=== PATIENT | female | born 1970 | race Caucasian/White ===

== ENCOUNTER 2017-07-15 11:32 | Emergency (ER) | payer BC ==
[2017-07-15] MEDS ORDERED: EPINEPHrine AMP 1 MG/ML SUBCUT ONE ×2 (11:36→11:51)
[2017-07-15] MEDS ORDERED: methylPREDNISolone 125 MG* 2 ML VIAL IM ONE (11:36)
[2017-07-15 11:59] VITALS: BP 118/78
[2017-07-16] MEDS ORDERED: EPINEPHRINE 1 MG/ML 1 ML VIAL ONE (14:49)
--- NOTE | 2017-08-04 18:06 | UC ---
Carlitos Stewart Nikita, scribed for Jessie Ibarra DO on 07/15/17 at 1141 . Allergic Reaction HPI - HPI Summary HPI Summary: This patient is a 47 year old F presenting to [facility] with a chief complaint of allergic reaction s/p being stung by 3 yellow jackets at 1030. pt has a h/o of anaphalaxis with bee stings. Pt reports pain are on both thighs and abdominal area where the bee stings are. Pt has not used her EpiPen, but has taken Benadryl [employer]STRUCTION [employer]ER. The patient rates the pain 6/10 in severity. Symptoms aggravated by nothing. Symptoms alleviated by nothing. Patient reports dizziness and throat swelling. Patient denies abdominal pain, N/V/D, and SOB. - History of Current Complaint Stated Complaint: BEE STING Hx Obtained From: Patient Hx Last Menstrual Period: on lupron for endometriosis Onset/Duration: Sudden Onset - 1030, Still Present Severity Initially: Moderate Severity Currently: Moderate Pain Intensity: 6 Pain Scale Used: 0-10 Numeric Location: Discrete @ - both thighs and abdominal area Character: Swelling, Pruritus, Pain Aggravating Factor(s): Nothing Alleviating Factor(s): Nothing Associated Signs And Symptoms: Positive: Throat Tightening, Other: - dizziness - Related Hx Possible Reaction To: Insect - Allergies/Home Medications Allergies/Adverse Reactions: Allergies Allergy/AdvReac Type Severity Reaction Status Date / Time Wheat Bran Allergy Intermediate See Comment Verified 07/15/17 11:34 Wheat Extract Allergy Intermediate See Comment Verified 07/15/17 11:34 Wheat Germ Oil Allergy Intermediate See Comment Verified 07/15/17 11:34 Avocado Allergy Anaphylatic Verified 07/15/17 11:34 Shock Barley Grass Allergy Anaphylatic Verified 07/15/17 11:34 Shock Canaan Oil [From [place]aan] Allergy Itching Verified 07/15/17 11:34 Erythromycin Allergy Nausea And Verified 07/15/17 11:34 Vomiting Honey Allergy Itching Verified 07/15/17 11:34 Iodinated Contrast Media Allergy Hives Verified 07/15/17 11:34 [CONTRAST DYE] Iodine Allergy Unknown Verified 07/15/17 11:34 Reaction Details Molds & Smuts Allergy Shortness Verified 07/15/17 11:34 of Breath Sulfa Antibiotics Allergy Anaphylatic Verified 07/15/17 11:34 Shock Sulfa Drugs Allergy Hives Verified 07/15/17 11:34 apricots Allergy Anaphylatic Uncoded 07/15/17 11:34 Shock blue cheese Allergy Itching Uncoded 07/15/17 11:34 cantaloupe Allergy Anaphylatic Uncoded 07/15/17 11:34 Shock carrots Allergy Anaphylatic Uncoded 07/15/17 11:34 Shock celery Allergy Anaphylatic Uncoded 07/15/17 11:34 Shock cherries Allergy Anaphylatic Uncoded 07/15/17 11:34 Shock coconut Allergy Anaphylatic Uncoded 07/15/17 11:34 Shock dates Allergy Anaphylatic Uncoded 07/15/17 11:34 Shock egg whites Allergy Anaphylatic Uncoded 07/15/17 11:34 Shock environmental Allergy Unknown Uncoded 07/15/17 11:34 Reaction Details kiwi Allergy Anaphylatic Uncoded 07/15/17 11:34 Shock legumes Allergy Anaphylatic Uncoded 07/15/17 11:34 Shock mold Allergy Shortness Uncoded 07/15/17 11:34 of Breath nectarines Allergy Anaphylatic Uncoded 07/15/17 11:34 Shock papaya Allergy Anaphylatic Uncoded 07/15/17 11:34 Shock peaches Allergy Anaphylatic Uncoded 07/15/17 11:34 Shock peanuts Allergy Anaphylatic Uncoded 07/15/17 11:34 Shock peppers Allergy Anaphylatic Uncoded 07/15/17 11:34 Shock pine nuts Allergy Anaphylatic Uncoded 07/15/17 11:34 Shock plums Allergy Itching Uncoded 07/15/17 11:34 pomegranates Allergy Anaphylatic Uncoded 07/15/17 11:34 Shock radishes Allergy Anaphylatic Uncoded 07/15/17 11:34 Shock rye Allergy Anaphylatic Uncoded 07/15/17 11:34 Shock sesame Allergy Anaphylatic Uncoded 07/15/17 11:34 Shock shell fish Allergy Anaphylatic Uncoded 07/15/17 11:34 Shock some seafood Allergy Anaphylatic Uncoded 07/15/17 11:34 Shock sunflower seeds Allergy Anaphylatic Uncoded 07/15/17 11:34 Shock tree nuts Allergy Anaphylatic Uncoded 07/15/17 11:34 Shock wheat germ Allergy Anaphylatic Uncoded 07/15/17 11:34 Shock Home Medications: Home Medications Budesonide/Formote 80/4.5(NF) [Symbicort 80/4.5 (NF)] 1 inhaler INHH DAILY 07/15 [History Confirmed 07/15/17] PMH/Surg Hx/FS Hx/Imm Hx Other Endocrine History: Immunodeficiency of immunoglobulin J Other Cardiovascular History: Heart murmur, vascular heart disease Respiratory History: Asthma, Bronchitis Other Respiratory History: BiPap dependent, sleep apnea Neurological History: Migraine - v Psychological History: Anxiety, Depression - Surgical History Surgical History: Yes Surgery Procedure, Year, and Place: 1986 R INGUINAL HERNIA REPAIR,. 1990 HIMENECTOMY,. 1993 ABDOMINAL LAPAROSCOPY FOR ENDOMETRIOSIS,X2. 1994 WISDOM TEETH,. 2006 BRONCHOSCOPY,. 2010 RIGHT BREAST BIOPSY - Family History Known Family History: Positive: Cardiac Disease, Diabetes Family History: obesity - Social History Lives: With Family Alcohol Use: Occasionally Substance Use Type: None Smoking Status (MU): Never Smoked Tobacco Review of Systems Constitutional: Chills Skin: Rash Eyes: Negative ENT: Other - swelling of throat Respiratory: Other - Denies SOB Gastrointestinal: Other - Denies abdominal pain, N/V/D Neurological: Other - Dizziness All Other Systems Reviewed And Are Negative: Yes Physical Exam Triage Information Reviewed: Yes Appearance: Well-Appearing, No Pain Distress, Well-Nourished Vital Signs: Temp 98.4 F 07/15/17 11:51 Pulse 59 07/15/17 11:51 Resp 16 07/15/17 11:51 BP 118/78 07/15/17 11:51 Pulse Ox 100 07/15/17 11:51 Vital Signs Reviewed: Yes Eyes: Positive: Conjunctiva Clear. Negative: Discharge ENT: Positive: Hearing grossly normal, Pharynx normal, TMs normal. Negative: Nasal drainage, Tonsillar swelling, Muffled/hoarse voice Neck: Positive: Supple, Nontender Respiratory: Positive: Lungs clear, Normal breath sounds, No respiratory distress, No accessory muscle use. Negative: Wheezing Cardiovascular: Positive: RRR, No Murmur Abdomen Description: Positive: Nontender, Soft. Negative: Distended, Guarding Bowel Sounds: Positive: Present Musculoskeletal Exam: Normal Neurological Exam: Normal Neurological: Positive: Alert, Muscle Tone Normal Psychological: Positive: Age Appropriate Behavior Skin: Positive: significant lesion(s) - 3 three red raised lesions1)abdomen2) leftt thigh3)rt thigh - Additional Comments Appearance: Well-Appearing, No Pain Distress, Well-Nourished Eyes: conjunctiva clear, negative: discharge ENT: Hearing grossly normal, Negative: Muffled/hoarse voice. Hearing grossly normal, normal voice. Neck: Normal, Supple Respiratory/Lung Sounds: Lungs clear, Normal breath sounds, No respiratory distress, No accessory muscle use Cardiovascular: RRR, No murmur Musculoskeletal: Normal Neurological: Alert, muscle tone normal Psychiatric: Normal, age appropriate behavior Skin: 3 large, raised, erythematous patches (1 on abdomen and 1 on each thigh) Stung by bees. Re-Evaluation - Re-Evaluation First Eval Change: Improved Comment: Pt reports almost complete resolution of throat tightening and dizziness. Second Eval Change: Improved Comment: Pt reports complete resolution of throat tightening and dizziness. Allergic Reaction Course/Dx - Course Course Of Treatment: This patient is a 47 year old F presenting to [facility] with a chief complaint of allergic reaction s/p being stung by 3 yellow jackets at 1030. Bee stings are on both thighs and abdominal area. Pt has not used her EpiPen, but has taken Benadryl [employer]. The patient rates the pain 6/10 in severity. Symptoms aggravated by nothing. Symptoms alleviated by nothing. Patient reports dizziness and throat swelling. Patient denies abdominal pain, N/ V/D, and SOB. In the course, pt was given epinephrine, which alleviated the symptoms. Medications reviewed this visit. Pt will be discharged. Pt is agreeable with this plan. - Differential Dx/Diagnosis Provider Diagnoses: General allergic reaction and Insect bite/sting. Discharge - Discharge Plan Condition: Stable Disposition: HOME Prescriptions: predniSONE TAB* [Deltasone TAB*] 40 mg PO DAILY #10 tab Patient Education Materials: Diphenhydramine (By mouth), Insect Bite or Sting ( ED), General Allergic Reaction (ED) Referrals: Evon Carney MD [Primary Care Provider] - 2 Days Additional Instructions: CORTICOSTEROID MEDICATION: You have been given a medicine of the cortisone class. This medication is used to control inflammation or allergy. It is usually only given for a short period of time, until the acute process subsides. There are usually no side effects from short-term use of cortisone-like medications. Some persons feel an increased sense of well-being and are not sleepy at bedtime. Long-term use of cortisone medications is best avoided, unless required for a severe condition. If your condition does not remit, or relapses after the course of corticosteroid medication, you should consult your physician. Contact the physician if you develop lightheadedness, black or tarry stools , swelling of the legs, or significant rapid change in weight. The documentation as recorded by the Carlitos prince Nikita accurately reflects the service I personally performed and the decisions made by me, Jessie Ibarra DO.
== END 2017-07-15 13:42 | disposition home or self-care (01) ==
LOC: UCEAST 11:32
DX: T63.441A Toxic effect of venom of bees, accidental (unintentional), initial encounter (principal); R42 Dizziness and giddiness; R22.1 Localized swelling, mass and lump, neck; Y92.9 Unspecified place or not applicable; D80.3 Selective deficiency of immunoglobulin G [IgG] subclasses; I25.10 Atherosclerotic heart disease of native coronary artery without angina pectoris; R01.1 Cardiac murmur, unspecified; J45.909 Unspecified asthma, uncomplicated; G43.109 Migraine with aura, not intractable, without status migrainosus; F41.9 Anxiety disorder, unspecified; F32.9 Major depressive disorder, single episode, unspecified; Z88.2 Allergy status to sulfonamides; Z88.1 Allergy status to other antibiotic agents; Z91.041 Radiographic dye allergy status
CPT/HCPCS: 96372; 99212; G0463; J0171; J2930

== ENCOUNTER 2017-10-13 08:47 | Day surgery (SDC) | payer BC ==
--- NOTE | 2017-10-11 12:09 | HP ---
CC: Dr. Hardy; Dr. Evon Carney PREOPERATIVE HISTORY AND PHYSICAL: DATE OF PREOPERATIVE HISTORY AND PHYSICAL EXAMINATION: 09/22/17. This patient is scheduled for Same-Day Surgery admission by Dr. Hardy on Monday , 10/13/17. ATTENDING SURGEON: Dr. Annelise Hardy (dictated by Prema Stewart NP). CHIEF COMPLAINT: Abdominal wall mass. HISTORY OF PRESENT ILLNESS: The patient is a 47-year-old female, recently evaluated by Dr. Hardy for a mass of the abdominal wall. The patient states that she has had a lump on the abdominal wall for about 5 years. She was seen in our office for this problem a couple of years ago, but had other medical issues to deal with, so deferred treatment. Now, she feels that this lump causes pain whenever she exercises the abdominal core. She also notices that sometimes after a big meal, she feels discomfort from the lump. In the past that was imaged and thought to be a lipoma versus a hernia containing fat. She thinks it may have gotten a little bigger than it was 2 years ago. She denies any signs or symptoms to suggest incarceration or strangulation. Dr. Hardy examined the patient and notes a soft, nontender mass in the midline of the abdomen superior to the umbilicus that is mobile and most likely consistent with a lipoma. Dr. Hardy has recommended excision of the abdominal wall mass as a Same-Day Surgery procedure and described the nature of the surgical procedure, the relevant risks, benefit, and alternatives. Today, I reviewed the expected postoperative care and recovery, the patient has had a chance to ask questions and stated that she understands the information and is satisfied with the answers given to her questions. She will sign surgical consent on the day of surgery. PAST MEDICAL HISTORY: Significant for hypogammaglobulinemia, also known as CVID ; asthma. PAST SURGICAL HISTORY: Repair of right inguinal hernia in 1986, laparoscopy for endometriosis in 1993 and 2004, right knee surgery in 2014. OB HISTORY: 0. She is up-to-date with pelvic, Pap smear and mammogram within the past year. Last menstrual period on 06/03/17. She is experiencing hot flashes and is currently on oral contraceptives for those symptoms. MEDICATIONS: 1. Alprazolam 0.5 mg one half to 1 tab as needed for anxiety. 2. Celexa 20 mg p.o. daily in the evening. 3. Hizentra 6 g weekly on Monday by home infusion. 4. ProAir HFA 2 puffs by mouth every 4 hours as needed. 5. Symbicort 80/4.5 mcg per actuation 2 puffs b.i.d. 6. Advil [id number] as needed. 7. Tylenol extra strength [id number] as needed. 8. Multivitamin daily. 9. Probiotic daily. 10. Benadryl 25 mg as needed. 11. Prempro 0.3/1.5 mg daily for hot flashes. ALLERGIES: CONTRAST DYE with IODINE caused hives, SULFA ANTIBIOTICS caused hives, BEE STINGS and TREE NUTS and EGG WHITES caused anaphylaxis, ERYTHROMYCIN and DOXYCYCLINE caused GI symptoms. SOCIAL HISTORY: She is single and is accompanied today by her partner; she has never been a smoker. She drinks alcohol socially. She denies the use of other substances. FAMILY HISTORY: No known anesthesia or clotting disorders. Mother had some type of unspecified bleeding tendency. REVIEW OF SYSTEMS: Constitutional: No fevers, chills, excessive fatigue, or weight loss. Endocrine: No diabetes or thyroid disease. Hematologic: No easy bruising or bleeding. No history of blood transfusions. Respiratory: No dyspnea on exertion. No chronic cough. Cardiovascular: No anginal chest pain or palpitations. Gastrointestinal: No nausea, vomiting, diarrhea, constipation , or change in bowel habits. Genitourinary: No dysuria. Musculoskeletal: No complaints of joint or back pain. Neurologic: No headache, blurred vision, areas of focal weakness or numbness. General: No previous anesthesia complications. No history of deep vein thrombosis or pulmonary embolism. She does have a history of hypogammaglobulinemia and is on weekly immunoglobulin therapy. PHYSICAL EXAMINATION GENERAL SURVEY: The patient is a 47-year-old female, well developed, well nourished, in no acute distress. VITAL SIGNS: Height 59 inches, weight 104 pounds, body mass index 20.8. Blood pressure 98/64, pulse 66 and regular, respiratory rate 16, temperature 98.4 tympanic. HEENT: Benign. NECK: Supple. No cervical lymphadenopathy. No supraclavicular lymphadenopathy. LUNGS: Breath sounds bilaterally clear and equal. HEART: Regular rate and rhythm. No murmurs or rubs appreciated. BACK: No CVA tenderness. ABDOMEN: Soft and nondistended. Active bowel sounds. Palpable mass in the upper abdomen superior to the umbilicus that is soft and mobile and minimally tender. No other obvious masses or organomegaly. PELVIC AND RECTAL: Exams done within the past year and not repeated. EXTREMITIES: Warm without edema or skin ulcerations. NEUROLOGIC: Alert and oriented x3. Steady gait. SKIN: Warm, dry, intact. IMPRESSION: Abdominal wall mass. PLAN: Same-Day Surgery admission to Dr. Hardy's service on 10/13/17 for excision of abdominal wall mass. ZACK STEWART, SPRING ASSEMBLER SUPERVISOR [id number]/[facility] #: [id number] ERIKA
--- NOTE | 2017-10-11 12:25 | HP ---
CC: Dr. Evon Carney * PREOPERATIVE HISTORY AND PHYSICAL: DATE OF PREOPERATIVE HISTORY AND PHYSICAL EXAMINATION: 09/22/17. This patient is scheduled for Same-Day Surgery admission by Dr. Hardy on Monday , 10/13/17. ATTENDING SURGEON: Dr. Annelise Hardy * (dictated by Prema Stewart NP). CHIEF COMPLAINT: Abdominal wall mass. HISTORY OF PRESENT ILLNESS: The patient is a 47-year-old female, recently evaluated by Dr. Hardy for a mass of the abdominal wall. The patient states that she has had a lump on the abdominal wall for about 5 years. She was seen in our office for this problem a couple of years ago, but had other medical issues to deal with, so deferred treatment. Now, she feels that this lump causes pain whenever she exercises the abdominal core. She also notices that sometimes after a big meal, she feels discomfort from the lump. In the past that was imaged and thought to be a lipoma versus a hernia containing fat. She thinks it may have gotten a little bigger than it was 2 years ago. She denies any signs or symptoms to suggest incarceration or strangulation. Dr. Hardy examined the patient and notes a soft, nontender mass in the midline of the abdomen superior to the umbilicus that is mobile and most likely consistent with a lipoma. Dr. Hardy has recommended excision of the abdominal wall mass as a Same-Day Surgery procedure and described the nature of the surgical procedure, the relevant risks, benefit, and alternatives. Today, I reviewed the expected postoperative care and recovery, the patient has had a chance to ask questions and stated that she understands the information and is satisfied with the answers given to her questions. She will sign surgical consent on the day of surgery. PAST MEDICAL HISTORY: Significant for hypogammaglobulinemia, also known as CVID ; asthma. PAST SURGICAL HISTORY: Repair of right inguinal hernia in 1986, laparoscopy for endometriosis in 1993 and 2004, right knee surgery in 2014. OB HISTORY: 0. She is up-to-date with pelvic, Pap smear and mammogram within the past year. Last menstrual period on 06/03/17. She is experiencing hot flashes and is currently on oral contraceptives for those symptoms. MEDICATIONS: 1. Alprazolam 0.5 mg one half to 1 tab as needed for anxiety. 2. Celexa 20 mg p.o. daily in the evening. 3. Hizentra 6 g weekly on Monday by home infusion. 4. ProAir HFA 2 puffs by mouth every 4 hours as needed. 5. Symbicort 80/4.5 mcg per actuation 2 puffs b.i.d. 6. Advil [id number]-[id number] as needed. 7. Tylenol extra strength [id number]-[id number]-[id number] as needed. 8. Multivitamin daily. 9. Probiotic daily. 10. Benadryl 25 mg as needed. 11. Prempro 0.3/1.5 mg daily for hot flashes. ALLERGIES: CONTRAST DYE with IODINE caused hives, SULFA ANTIBIOTICS caused hives, BEE STINGS and TREE NUTS and EGG WHITES caused anaphylaxis, ERYTHROMYCIN and DOXYCYCLINE caused GI symptoms. SOCIAL HISTORY: She is single and is accompanied today by her partner; she has never been a smoker. She drinks alcohol socially. She denies the use of other substances. FAMILY HISTORY: No known anesthesia or clotting disorders. Mother had some type of unspecified bleeding tendency. REVIEW OF SYSTEMS: Constitutional: No fevers, chills, excessive fatigue, or weight loss. Endocrine: No diabetes or thyroid disease. Hematologic: No easy bruising or bleeding. No history of blood transfusions. Respiratory: No dyspnea on exertion. No chronic cough. Cardiovascular: No anginal chest pain or palpitations. Gastrointestinal: No nausea, vomiting, diarrhea, constipation , or change in bowel habits. Genitourinary: No dysuria. Musculoskeletal: No complaints of joint or back pain. Neurologic: No headache, blurred vision, areas of focal weakness or numbness. General: No previous anesthesia complications. No history of deep vein thrombosis or pulmonary embolism. She does have a history of hypogammaglobulinemia and is on weekly immunoglobulin therapy. PHYSICAL EXAMINATION GENERAL SURVEY: The patient is a 47-year-old female, well developed, well nourished, in no acute distress. VITAL SIGNS: Height 59 inches, weight 104 pounds, body mass index 20.8. Blood pressure 98/64, pulse 66 and regular, respiratory rate 16, temperature 98.4 tympanic. HEENT: Benign. NECK: Supple. No cervical lymphadenopathy. No supraclavicular lymphadenopathy. LUNGS: Breath sounds bilaterally clear and equal. HEART: Regular rate and rhythm. No murmurs or rubs appreciated. BACK: No CVA tenderness. ABDOMEN: Soft and nondistended. Active bowel sounds. Palpable mass in the upper abdomen superior to the umbilicus that is soft and mobile and minimally tender. No other obvious masses or organomegaly. PELVIC AND RECTAL: Exams done within the past year and not repeated. EXTREMITIES: Warm without edema or skin ulcerations. NEUROLOGIC: Alert and oriented x3. Steady gait. SKIN: Warm, dry, intact. IMPRESSION: Abdominal wall mass. PLAN: Same-Day Surgery admission to Dr. Hardy's service on 10/13/17 for excision of abdominal wall mass. ZACK STEWART, TARUN [id number]/[facility] #: [id number] ERIKA
[~2017-10-13 08:47] MED LIST: Buffered Lidocaine 0.9% SYRIN* 5 ML/SYR SYRINGE INTRADERM ONE; Buffered Lidocaine 0.9% SYRIN* 5 ML/SYR SYRINGE ONE; DiMENhydriNATE IV* 50 MG/ML VIAL IV PUSH PRN; Famotidine IV* 10 MG/ML 2 ML (20 mg) IV ONE; Famotidine IV* 10 MG/ML 2 ML (20 mg) ONE; PROCHLORPERAZINE INJ 5 MG/ML 2 ML VIAL IV PRN; ceFAZolin 2 GM PREMIX (*) 2 GM/50 ML BAG IVPB ONE; fentaNYL* 50 MCG/ML 2 ML VIAL (100 MCG VIAL) IV PRN; oxyCODONE/Acetamin 5/325 MG* TAB PO PRN
[2017-10-13] MEDS ORDERED: Lidocaine 1% MPF wEPI 200,000* 30 ML SDV ONE (09:10)
[2017-10-13] MEDS ORDERED: Bupivacaine 0.5% SDV PF* 30 ML VIAL ONE (09:10)
[2017-10-13] MEDS ORDERED: KETAMINE HCL* 50 MG/ML 10 ML VIAL ONE (09:31)
[2017-10-13] MEDS ORDERED: fentaNYL* 50 MCG/ML 2 ML VIAL (100 MCG VIAL) ONE (09:31)
[2017-10-13] MEDS ORDERED: Midazolam* 1 MG/ML 10 ML VIAL (10 MG) ONE (09:31)
[2017-10-13] MEDS ORDERED: Lidocaine 1% INJ* 10 MG/ML 30 ML SDV ONE (09:38)
[2017-10-13] MEDS ORDERED: Flumazenil* 0.1 MG/ML 5 ML MDV ONE (10:19)
[2017-10-13] MEDS ORDERED: Propofol* 10 MG/ML 20 ML BTL IV PUSH ONE (10:19)
[2017-10-13] MEDS ORDERED: Lidocaine 2% PF * 5 ML VIAL ONE (10:19)
--- NOTE | 2017-10-13 10:30 | SURGPN ---
Brief Operative Note - Surgery Procedures: Procedures CLOSED ENDOSCOPIC BIOPSY OF LARGE INTESTINE (03/24/15) ESOPHAGOGASTRODUODENOSCOPY [EGD] W/CLOSED BIOPSY (03/24/15) 10/13/17 Op Note (dict'd) Pre-op dx: abdominal wall mass Post-op dx: epigastric hernia Procedure: excision of abdominal wall mass and repair of epigastric hernia Surgeon: Antony Asst: none Anesth: local MAC SCDs on during surgery Abx: given pre-op EBL: <5cc Complications: none Pt. tolerated procedure well and was transferred to in a stable condition. CLFoster
[2017-10-13 12:16] VITALS: BP 108/75
--- NOTE | 2017-10-14 01:44 | OP ---
CC: [facility]; Evon Carney MD OPERATIVE REPORT: DATE OF OPERATION: 10/13/17 DATE OF : 68 SURGEON: Annelise Hardy MD RIGGER APPRENTICE: There was no accounting assistant for this case. PRE-OP DIAGNOSIS: Abdominal wall mass. POST-OP DIAGNOSIS: Epigastric hernia. OPERATIVE PROCEDURE: Excision of abdominal wall mass and repair of epigastric hernia. INDICATIONS: The patient is a 47-year-old woman, who presented to the office with symptomatic abdomi nal wall mass prompted a plan of surgical intervention. DESCRIPTION OF PROCEDURE: She was brought to the operating room, placed on the OR table in supine po sition and given IV sedation. The abdomen was then prepped and draped in usual sterile fashion. Aft er infiltrating with local anesthetic, an incision was made over the mass and subcutaneous tissue was divided with primarily blunt dissection to expose the mass, which appeared initially to be a lipoma. However, it arose from a small defect in the fascia. The mass was amputated using Vicryl stitch to ligate it, and the residual was reduced through the small defect. A 0 Vicryl stitch was used to close the defect in a [id number]-[id number]-qcnre fashion. It should be mentioned that the mass that was removed was about 1.5 cm in diameter. The defect was about 4 mm in diameter and once it was closed with Vicryl, t here was no residual defect. The subcutaneous tissue was then closed with 3-0 Vicryl interrupted sti tches and the skin was closed with 4-0 Prolene in the subcuticular fashion. Steri-Strips and a dry s terile dressing were applied. All sponge and instruments counts were correct. The patient tolerated the procedure well and was transferred to Recovery in a stable condition. [id number]/[facility] #: [id number]
== END 2017-10-13 12:23 | disposition home or self-care (01) ==
LOC: OR 08:47
PROVIDERS: ATTEND Surgery
DX: K43.9 Ventral hernia without obstruction or gangrene (principal); J45.909 Unspecified asthma, uncomplicated; D80.1 Nonfamilial hypogammaglobulinemia
CPT/HCPCS: 81025; 88302; J0690; J2001; J2250; J2704; J3010

== ENCOUNTER 2019-10-27 17:34 | Emergency (ER) | payer BC ==
[2019-10-27] MEDS ORDERED: oxyCODONE/Acetamin 5/325 MG* TAB PO ONE (17:54)
[2019-10-27] MEDS ORDERED: Ibuprofen TAB* 600 MG PO ONE (17:57)
--- NOTE | 2019-10-27 18:00 | ED ---
Upper Extremity Pain - HPI Summary HPI Summary: 49 year old female presents with right elbow pain today. she states that she slipped in the mud and fell onto her butt and right elbow. she states she almost passed out due to the pain. She states that she took some Ativan which helped with the pain. She denies any head injury. no LOC. no neck pain. no other injury. she has history of extensive allergies. she has history of asthma and sleep apnea - History of Current Complaint Chief Complaint: EDExtremityUpper Stated Complaint: BROKEN ARM PER PT Time Seen by Provider: 10/27/19 17:47 Hx Last Menstrual Period: MID MAY - Allergies/Home Medications Allergies/Adverse Reactions: Allergies Allergy/AdvReac Type Severity Reaction Status Date / Time MS Wheat Bran [Wheat Bran] Allergy Intermediate See Comment Verified 10/13/17 09 :14 MS Wheat Extract Allergy Intermediate See Comment Verified 10/13/17 09:14 [Wheat Extract] MS Wheat Germ Oil Allergy Intermediate See Comment Verified 10/13/17 09:14 [Wheat Germ Oil] MS Avocado [Avocado] Allergy Anaphylatic Verified 10/13/17 09:14 Shock MS Barley Grass Allergy Anaphylatic Verified 10/13/17 09:14 [Barley Grass] Shock MS [place] Oil [From [place]] Allergy Itching Verified 10/13/17 09:14 MS Erythromycin Allergy Nausea And Verified 10/13/17 09:14 [Erythromycin] Vomiting MS Honey [Honey] Allergy Itching Verified 10/13/17 09:14 MS Iodinated Contrast Media Allergy Hives Verified 10/13/17 09:14 [CONTRAST DYE] MS Iodine [Iodine] Allergy Unknown Verified 10/13/17 09:14 Reaction Details MS Molds & Smuts Allergy Shortness Verified 10/13/17 09:14 [Molds & Smuts] of Breath MS Sulfa Antibiotics Allergy Anaphylatic Verified 10/13/17 09:14 [Sulfa Antibiotics] Shock MS Sulfa Drugs [Sulfa Drugs] Allergy Hives Verified 10/13/17 09:14 apricots Allergy Anaphylatic Uncoded 10/13/17 09:14 Shock bees Allergy anaphylactic Uncoded 10/13/17 09:14 shock blue cheese Allergy Itching Uncoded 10/13/17 09:14 cantaloupe Allergy Anaphylatic Uncoded 10/13/17 09:14 Shock carrots Allergy Anaphylatic Uncoded 10/13/17 09:14 Shock celery Allergy Anaphylatic Uncoded 10/13/17 09:14 Shock cherries Allergy Anaphylatic Uncoded 10/13/17 09:14 Shock coconut Allergy Anaphylatic Uncoded 10/13/17 09:14 Shock dates Allergy Anaphylatic Uncoded 10/13/17 09:14 Shock egg whites Allergy Anaphylatic Uncoded 10/13/17 09:14 Shock environmental Allergy Unknown Uncoded 10/13/17 09:14 Reaction Details kiwi Allergy Anaphylatic Uncoded 10/13/17 09:14 Shock legumes Allergy Anaphylatic Uncoded 10/13/17 09:14 Shock mold Allergy Shortness Uncoded 10/13/17 09:14 of Breath nectarines Allergy Anaphylatic Uncoded 10/13/17 09:14 Shock papaya Allergy Anaphylatic Uncoded 10/13/17 09:14 Shock peaches Allergy Anaphylatic Uncoded 10/13/17 09:14 Shock peanuts Allergy Anaphylatic Uncoded 10/13/17 09:14 Shock peppers Allergy Anaphylatic Uncoded 10/13/17 09:14 Shock pine nuts Allergy Anaphylatic Uncoded 10/13/17 09:14 Shock plums Allergy Itching Uncoded 10/13/17 09:14 pomegranates Allergy Anaphylatic Uncoded 10/13/17 09:14 Shock radishes Allergy Anaphylatic Uncoded 10/13/17 09:14 Shock rye Allergy Anaphylatic Uncoded 10/13/17 09:14 Shock sesame Allergy Anaphylatic Uncoded 10/13/17 09:14 Shock shell fish Allergy Anaphylatic Uncoded 10/13/17 09:14 Shock some seafood Allergy Anaphylatic Uncoded 10/13/17 09:14 Shock sunflower seeds Allergy Anaphylatic Uncoded 10/13/17 09:14 Shock tree nuts Allergy Anaphylatic Uncoded 10/13/17 09:14 Shock wheat germ Allergy Anaphylatic Uncoded 10/13/17 09:14 Shock PMH/Surg Hx/FS Hx/Imm Hx Endocrine/Hematology History: Reports: Hx Anemia - HX OF LOW LEVEL, Other Endocrine/Hematological Disorders - recent DX of low IGG/weekly Hizentra SQ infusion Denies: Hx Diabetes, Hx Thyroid Disease Cardiovascular History: Reports: Hx Valvular Heart Disease - HX MVP A TEEN AND YOUNG ADULT Denies: Hx Hypertension, Hx Pacemaker/ICD Respiratory History: Reports: Hx Asthma, Hx Sleep Apnea - CPAP user, compliant, Other Respiratory Problems/Disorders - BRONCHITIS Denies: Hx Chronic Obstructive Pulmonary Disease (COPD) GI History: Reports: Hx Hiatal Hernia - HX OF 25 YEARS AGO- STATES NON VIRAL Denies: Hx Ulcer Musculoskeletal History: Reports: Hx Arthritis - RIGHT KNEE, Hx Bursitis - right hip Denies: Hx Osteoporosis, Other Musculoskeletal History Sensory History: Reports: Hx Contacts or Glasses - INSTRUCTS GIVEN, Hx Glaucoma - SUSPICIOUS OF Denies: Hx Hearing Aid Opthamlomology History: Reports: Hx Contacts or Glasses - INSTRUCTS GIVEN, Hx Glaucoma - SUSPICIOUS OF Neurological History: Reports: Hx Migraine - A FEW TIMES PER YEAR- TREATS WITH TYLENOL AND ADVIL Denies: Other Neuro Impairments/Disorders Psychiatric History: Reports: Hx Anxiety - prn meds, Hx Depression - HISTORY OF Denies: Hx Panic Disorder - Cancer History Hx Chemotherapy: No Hx Radiation Therapy: No - Surgical History Surgery Procedure, Year, and Place: 1986 R INGUINAL HERNIA REPAIR,. 1990 HIMENECTOMY,. 1993 ABDOMINAL LAPAROSCOPY FOR ENDOMETRIOSIS,X2. 1994 WISDOM TEETH,. 2006 BRONCHOSCOPY,. 2010 RIGHT BREAST BIOPSY Hx Anesthesia Reactions: No Infectious Disease History: No Infectious Disease History: Denies: Hx Clostridium Difficile, Hx Hepatitis, Hx Human Immunodeficiency Virus (HIV), Hx of Known/Suspected MRSA, Hx Shingles, Hx Tuberculosis, Hx Known/ Suspected VRE, Hx Known/Suspected VRSA, History Other Infectious Disease, Traveled Outside the [place] in Last 30 Days - Family History Known Family History: Positive: Non-Contributory - Social History Alcohol Use: Rare Alcohol Amount: 1 DRINK A WEEK Substance Use Type: Reports: None Smoking Status (MU): Never Smoked Tobacco Review of Systems Negative: Fever Negative: Chest Pain Negative: Shortness Of Breath Positive: Myalgia - right elbow pain All Other Systems Reviewed And Are Negative: Yes Physical Exam Triage Information Reviewed: Yes Vital Signs On Initial Exam: Initial Vitals Temp Pulse Resp BP Pulse Ox 98.6 F 80 18 114/81 100 10/27/19 17:35 10/27/19 17:35 10/27/19 17:35 10/27/19 17:35 10/27/19 17:35 Vital Signs Reviewed: Yes Appearance: Positive: Well-Appearing Skin: Positive: Warm, Dry Head/Face: Positive: Normal Head/Face Inspection Eyes: Positive: Normal, Conjunctiva Clear ENT: Positive: Pharynx normal Respiratory/Lung Sounds: Positive: Clear to Auscultation, Breath Sounds Present Cardiovascular: Positive: Normal, RRR Musculoskeletal: Positive: Limited @ - right elbow, Other - tenderness right elbow with deformity noted, good pulses, Neurological: Positive: Normal Psychiatric: Positive: Normal Procedures - Sedation Patient Received Moderate/Deep Sedation with Procedure: Yes Are You The Provider Who Administered The Sedation: [place] of Provider Whom Sedated Patient: Joseph Cardoso - Splinting elbow Location: right elbow Hand-Made Type: orthoglass Splint: posterior Pre-Proc Neuro Vasc Exam: normal Post-Proc Neuro Vasc Exam: normal Splint Applied by Provider: Magi Cifuentes [email or web address] - Vital Signs Vital Signs Temp Pulse Resp BP Pulse Ox 10/27/19 17:35 98.6 F 80 18 114/81 100 - Laboratory Lab Statement: Any lab studies that have been ordered have been reviewed, and results considered in the medical decision making process. - Radiology elbow Radiology Interpretation Completed By: ED Physician Summary of Radiographic Findings: dislocation, possible fracture postreduction Radiology Interpretation Completed By: ED Physician Summary of Radiographic Findings: elbow reduced Course/Dx - Course Course Of Treatment: 49 year old female presents with right elbow pain today. she states that she slipped in the mud and fell onto her butt and right elbow. she states she almost passed out due to the pain. She states that she took some Ativan which helped with the pain. She denies any head injury. no LOC. no neck pain. no other injury. she has history of extensive allergies. On exam has tenderness over right elbow. neurovascular intact. xray shows elbow dislocation with possible avulsion fx that do not see on reduction film. performed reduction with dr cardoso. placed in posterior long. told follow up with ortho. patient understand and agrees with plan. - Diagnoses Differential Diagnosis/HQI/PQRI: Positive: Contusion, Fracture (Closed), Sprain Provider Diagnoses: Dislocation of right elbow Discharge ED - Sign-Out/Discharge Documenting (check all that apply): Patient Departure - Discharge Plan Condition: Good Disposition: HOME Patient Education Materials: Elbow Dislocation (ED), Procedural Sedation (ED) Referrals: Evon Carney MD [Primary Care Provider] - Ct Wilburn MD [Medical Doctor] - Additional Instructions: Keep elbow in sling Keep splint on area and keep dry Call ortho office tomorrow to set up appointment for follow up Use ibuprofen or Tylenol for pain every 6 hours ice, elevate Return to ED if develop any new or worsening symptoms - Billing Disposition and Condition Condition: GOOD Disposition: Home
--- OUTSIDE RECORDS SUMMARY | 2019-10-27 18:17 | XMS REPORT | Continuity of Care Document ---
:1970 External Reference #:[id number] Author Name Freda Bates N.P. 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 Onset: 08/10/2016 Moderate persistent asthma Evon Carney M.D. Onset: 08/10/2016 Hemangioma of liver Evon Carney M.D. Onset: 09/09/2016 Osteopenia Evon Carney M.D. Onset: 09/11/2016 Note: mild in spine per records Lipoma of skin Evon Carney M.D. Onset: 09/12/2016 Note: upper abdomen vs hernia containing fat per CT scan u/s [address] Wilburn M.D. Onset: 11/28/2016 Periodic leg movements of sleep Jerica Adrian DNP, RN, MEDICATION MANAGER-BC Onset: 05/17 Allergy to bee venom Evon Carney M.D. Onset: 08/02/2017 Social History Type Date Description Comments Sex Unknown Tobacco Use Start: Unknown Never Smoked Cigarettes Smoking Status Reviewed: 10/16/19 Never Smoked Cigarettes ETOH Use Currently consumes 2 glasses wine per alcohol week Tobacco Use Start: Unknown Patient has never smoked Recreational Drug Use Denies Drug Use Exercise Type/Frequency Exercises sporadically Allergies, Adverse Reactions, Alerts Active Allergies Reaction Severity Comments Date Iodinated Contrast Dye Hives 04/07/2015 Sulfa Antibiotics Hives 04/07/2015 Erythromycin N&V 08/17/2016 Doxycycline N&V 08/17/2016 Bee Sting Anaphylaxis dizzy/ throat closing 08/02/2017 /local reaction Tree Nuts Anaphylaxis 08/30/2017 Eggs or Egg-derived Products Anaphylaxis 08/30/2017 Medications Active Medications SIG Qnty Indications Ordering Date Provider Propranolol HCL ER 1 by mouth 30 minutes 30caps F43.23 Freda Bates, before performance N.P. 60mg Caps ER 24HR Turmeric 200 mg daily Evon Angelika, 10/10/2018 Powder M.D. Alprazolam 1/2 to 1 tab as 30tabs Freda Bates, 11/17/2016 0.5mg needed for anxiety N.P. Tablets Celexa 1 by mouth every day 90tabs Evon Angelika, 05/16/2016 20mg Tablets M.D. Benadryl 1 by mouth as Unknown 04/06/2015 25mg needed/directed Capsules Hizentra 6 grams subQ weekly Unknown 04/06/2015 Solution Proair HFA 2 puffs by mouth Unknown every 4 hours as 108(90Base) mcg/Act needed Aerosol Symbicort 2 puff twice a day Unknown 80-4.5mcg/Act Aerosol Probiotic qd Unknown Capsules Multivitamin Women qd Unknown Tablets Tylenol Extra 2 by mouth as needed Unknown Strength 500mg Tablets Advil as needed Unknown 200mg Capsules Epipen 2-Huan subcutaneously as Unknown needed for 0.3mg/0.3ML anaphylaxis Solution Auto-Inject Medications Administered in Office Medication SIG Qnty Indications Ordering Provider Date Depomedrol 40MG Ct Wilburn M.D. 12/12/2016 Injection Immunizations CPT Code Status Date Vaccine Lot # [id number] Given 08/08/2018 Influenza Virus Vaccine, Quadrivalent, Split, Preservative Free [id number] Given 08/17/2017 Influenza Virus Vaccine, Quadrivalent, Split, Preservative Free 78612 Given 07/19/2011 Tdap - Tetanus/Diptheria/Acellular Pertussis Vital Signs Date Vital Result Comment 10/16/2019 8:42am Height 59.25 inches 4'11.25" Weight 107.12 lb Heart Rate 77 /min BP Systolic Sitting 96 mmHg BP Diastolic Sitting 62 mmHg Body Temperature 97.2 F O2 % BldC Oximetry 97 % BMI (Body Mass Index) 21.5 kg/m2 05/22/2019 8:51am Height 59.25 inches 4'11.25" Weight 105.00 lb Heart Rate 60 /min reg = apical BP Systolic Sitting 98 mmHg left reg BP Diastolic Sitting 62 mmHg left reg Respiratory Rate 12 /min BMI (Body Mass Index) 21.0 kg/m2 Procedures Date Code Description Status 09/11/2019 [id number] Mammogram Completed 09/10/2018 [id number] Mammogram Completed 02/28/2017 [id number] Bone Mineral Density Test Completed 10/30/2013 [id number] Colonoscopy Completed Medical Devices Description No Information Available Encounters Type Date Location Provider Dx Diagnosis Office Visit 05/22/2019 Pulmonology And Jerica Adrian, G47.33 Obstructive sleep 8:[facility]a [facility], RN, MEDICATION MANAGER-BC apnea (adult) [employer] Supervisor (pediatric) Assessments Date Code Description Provider 10/16/2019 Z00.00 Encounter for general adult medical Freda Varn, N.P. examination without abnormal findings 10/16/2019 D83.1 Common variable immunodeficiency with Freda Varn, N.P. predominant immunoregulatory T-cell disorders 10/16/2019 M06.4 Inflammatory polyarthropathy Freda Varn, N.P. 10/16/2019 G47.33 Obstructive sleep apnea (adult) Freda Varn, N.P. (pediatric) 10/16/2019 F43.23 Adjustment disorder with mixed Freda Varn, N.P. anxiety and depressed mood 10/16/2019 E78.00 Pure hypercholesterolemia, Freda Varn, N.P. unspecified 10/16/2019 N95.9 Unspecified menopausal and Freda Varn, N.P. perimenopausal disorder 10/16/2019 J45.30 Mild persistent asthma, uncomplicated Freda Varn, N.P. 05/22/2019 G47.33 Obstructive sleep apnea (adult) Jerica Adrian DNP, RN, (pediatric) MEDICATION MANAGER- Plan of Treatment Future Appointment(s):05/22/2020 8:30 am - Jerica Adrian DNP, RN, MEDICATION MANAGER-BC at [facility] - Carmen Perales.Vishnu.Z00.00 Encounter for general adult medical examination without abnormal findingsComments:For your routine health maintenance: I would encourage you to start up with your regular exercise program. Your colonoscopy is up to date. You had this in 2013. You will need this repeated in 2023. Your Tetanus immunization is up to date. You received this in 2010. It is good for 10 years unless you have a major injury, then it is good for 5 years.Follow up:Physical in 1 yearD83.1 Common variable immunodeficiency with predominant immunoregulatory T-cell disordersComments:Please continue your management with your specialist, Dr Lopez.M06.4 Inflammatory euuurkaghgtwxhoC48.33 Obstructive sleep apnea (adult) (pediatric)Comments:For your sleep apnea continue your management with the sleep clinic.F43.23 Adjustment disorder with mixed anxiety and depressed moodNew Medication:Propranolol HCL ER 60 mg - 1 by mouth 30 minutes before performanceComments:For your performance anxiety I have prescribed Propranolol 60 mg. Take this 30 minutes before a performance and this should help to keep you calm. For other situations I have refilled your Alprazolam.E78.00 Pure hypercholesterolemia, unspecifiedComments:I have ordered blood work to check your cholesterol. You need to fast for 10 hours prior to getting your blood drawn. I will contact you with your results.N95.9 Unspecified menopausal and perimenopausal disorderComments:For your osteopenia: You should be getting between 1,000 - 1,200 mg of Calcium in daily. Be sure to take this in divided doses along with Vitamin D. Weight bearing exercise is important to stimulate your bones to maintain their density. I have ordered a Dexascan to see what your current bone density is. I will contact you with your results.J45.30 Mild persistent asthma, uncomplicatedComments:For your asthma: Continue your current management. If at any point you find you need to use your rescue inhaler more than twice weekly on a regular basis, please call the office. This indicates your asthma is not adequately controlled. Functional Status Description No Information Available Mental Status Description No Information Available Referrals Description No Information Available
[2019-10-27] MEDS ORDERED: Propofol* 10 MG/ML 20 ML BTL IV PUSH ONE ×2 (19:17→19:24)
--- NOTE | 2019-10-27 19:21 | ED ---
ED Sedation - Procedural Sedation/Analgesia Sedation Course: RT Present, Emergency Airway Equipment Available, Informed Consent Obtained, Time Out Completed, End-tidal Capnography Utilized Adverse Reactions Experienced by Patient: None Mallampati Classification: Class II ASA Classification: Class II: Mild Systemic Disease Diagnosis: right elbow dislocation Pre-Procedural Heart: S1 and S2 Pre-Procedural Lungs: Clear Auscultation Comment/Plan of Care: patient to be sedated to reduce dislocation Provider Procedure Attestation: With My Signature Below, I Attest to have Personally Reviewed and Agree with the Pre-Sedation History and Pre-Service Assessment Update Cleared for Moderate Sedation: Yes Pre-Procedural Diagnosis: right elbow dislocation Post-Procedural Diagnosis: right elbow dislocation Procedure: moderate sedation for elbow reduction, reduction performed by BRIAN Cifuentes Estimated Blood Loss: None Specimen(s): None Findings: None Implants/Tubes/Drains Placed: None - Attestation Statements Document Initiated by Scribe: Yes Documenting Scribe: Tania Oglesby Provider For Whom Marianaibe is Documenting (Include Credential): Dr. Joseph Bagley MD Scribe Attestation: ITania scribed for Dr. Joseph Bagley MD on 10/28/19 at 0149. Scribe Documentation Reviewed: Yes Provider Attestation: The documentation as recorded by the Tania prince accurately reflects the service I personally performed and the decisions made by me, Dr. Joseph Bagley MD Status of Scribe Document: Viewed
[2019-10-27] MEDS ORDERED: Ondansetron INJ* 2 MG/ML VIAL IV ONE (19:37)
[2019-10-27] MEDS ORDERED: Propofol* 10 MG/ML 50 ML BTL IV ONE (20:00)
[2019-10-27 20:59] VITALS: BP 108/84
== END 2019-10-27 20:55 | disposition home or self-care (01) ==
LOC: ED 17:34
DX: S53.104A Unspecified dislocation of right ulnohumeral joint, initial encounter (principal); W01.0XXA Fall on same level from slipping, tripping and stumbling without subsequent striking against object, initial encounter; Y92.9 Unspecified place or not applicable; J45.909 Unspecified asthma, uncomplicated; F41.9 Anxiety disorder, unspecified; F32.9 Major depressive disorder, single episode, unspecified; Z88.2 Allergy status to sulfonamides; Z88.1 Allergy status to other antibiotic agents; Z91.041 Radiographic dye allergy status
CPT/HCPCS: 24600; 96374; 96375; 99283; A9270-GY; J2405; J2704

== ENCOUNTER 2022-05-16 18:15 | Observation (INO) ==
[2022-05-16 18:56] LABS: ABS Eosinophils 0.2 10^3/ul (0-0.6); ABS Lymphocytes 2.1 10^3/ul (1.0-4.8); ABS Monocytes 0.6 10^3/ul (0-0.8); Eosinophil % 3.3 %; Hematocrit 39 % (35-47); Hemoglobin 12.2 g/dL (12.0-16.0); Lymphocyte % 35.2 %; Mean Corpuscular HGB Conc 32 g/dL (31-36); Mean Corpuscular Hemoglobin 26 pg (27-31); Mean Corpuscular Volume 82 fL (80-97); Mean Platelet Volume 7.2 fL (7.4-10.4); Nucleated Red Blood Cells % 0.1; Platelet Count 269 10^3/uL (150-450); Red Blood Count 4.73 10^6 /uL (3.70-4.87); Red Cell Distribution Width 14 % (10-15); White Blood Count 5.9 10^3/uL (3.5-10.8)
[2022-05-16 19:12] LABS: Activated Partial Thrombo Time 32.5 seconds (26.0-38.0); INR 0.95 (0.86-1.15)
[2022-05-16 19:31] LABS: Albumin 4.3 g/dL (3.2-5.2); Albumin/Globulin Ratio 1.5 (1-3); Calcium 9.2 mg/dL (8.6-10.3); Globulin 2.9 g/dL (2-4); HDL Cholesterol 100.7 mg/dL; Potassium 3.7 mmol/L (3.5-5.0); Total Bilirubin 0.3 mg/dL (0.2-1.0); Total Protein 7.2 g/dL (6.4-8.9); eGFR CKD-EPI 95.7 (>60)
[2022-05-16] MEDS ORDERED: diazePAM INJ CARPUJECT 5 MG/ML SYRINGE IV ONE (20:17)
[2022-05-16] MEDS ORDERED: Gadobenate (CONTRAST) 529 MG/ML 10 ML SDV IV ONE (21:40)
[2022-05-16] MEDS ORDERED: Enoxaparin 40 MG/0.4 ML SYR SUBCUT SCH (23:45)
[2022-05-17] MEDS ORDERED: Mometasone/Formoter 100/5 MDI INH SCH (07:00)
[2022-05-17] MEDS ORDERED: Aspirin EC 81 mg TAB.EC (enteric coated) PO SCH (09:00)
[2022-05-17 10:35] LABS: TSH Ultra Thyroid Stim Horm 3.74 mcIU/mL (0.34-5.60)
[2022-05-17 11:46] VITALS: BP 114/70
== END 2022-05-17 14:45 | disposition home or self-care (01) ==
LOC: ED 18:15 → EDHOLD 18:15 → SUATTDRO 23:45 → MEDTELE 05-17 03:45
PROVIDERS: ADMIT Student in an Organized Health Care Education/Training Program; ATTEND Internal Medicine